=== PATIENT | male | born 1985 | race Two or more races ===

== ENCOUNTER 2021-12-20 00:23 | Day surgery (SDC) | payer OTHER, SELFPAY ==
[2021-12-18 17:23] VITALS: BMI 32.1
--- NOTE | 2021-12-18 17:46 | PC.NURSE ---
Report to the Outpatient Waiting Room, entrance under the green pavilion located off [facility], at 1200 on 12-20-21. OR Time: 1400. Time changes happen often and if your time is changed the preop area will call you the afternoon before. - You and your visitor will be asked to self-screen and do not enter if you have any COVID symptoms. - Only one visitor and NO children visitors are allowed at this time. - The patient visitor is requested to leave or wait in car when not with patient due to restrictions. - A mask is required within the hospital. Patients may have clear liquids (water, carbonated beverages, clear teas, apple juice) until 3 hours prior to surgery with a maximum of 20 ounces. 1100 - No food from midnight until time of surgery - Infants may have breast milk until 4 hours before surgery, formula 6 hours prior to surgery. - Children will be allowed to drink immediately following surgery. If applicable, please bring a bottle or sippy cup to assist with drinking. Juice, water, soda, and popsicles are readily available. For infants on formula, please bring formula the day of surgery. Pacifiers are allowed. Take the following medications with a SIP of water the morning of surgery: None Medications to discontinue per physician: Vitamins and supplements Date to take last dose: 12-18-21 Please no make-up, nail bulgarian, hairspray, perfume, deodorant, or body powder the day of surgery. No jewelry (including any body piercings) or valuables the day of surgery, leave them at home. Please take a shower or bath the night before, or the morning of, surgery with an antibacterial soap. Wear comfortable, loose fitting clothing. Children are encouraged to wear pajamas. - Jewelry must be removed prior to entering the operating room. Rings and piercings that are not removed may be cut off. - The hospital will not accept responsibility for valuables. - Please leave all valuables, including medications, at home the day of surgery. If you are going home after surgery, a licensed pizza driver must drive you home. - NO public transportation without another adult. - We recommend that an adult stay with you for 24 hours following discharge. - We also recommend that you do not drive, make important decision, drink alcoholic beverages, or take any drugs that were not prescribed by your health care provider for at least 24 hours after your discharge time. For Pediatric surgeries, we recommend two adults accompany the child home (only one inside the building at this time). Follow any additional instructions given to you from your surgeon. If you or anyone in your household have experienced Covid symptoms in the past week, please notify your surgeon or the nurse liaison at the phone number below for possible testing. Telephone instructions given to Mitch Vallecillo and asked if any additional questions and then verbalized understanding. Patient advised to call surgeon office or pre surgery nurse liaison [phone] if any additional questions.
[2021-12-20] MEDS: ACETAMINOPHEN 500 MG TABLET 1000 MG PO (13:20)
[2021-12-20] MEDS: LACTATED RINGERS 1,000 ML 30 ML IV CONT (13:25)
[2021-12-20 13:35] VITALS: BP 144/84; PULSE 88; RESP 16; TEMP 36.6; O2SAT 100
--- NOTE | 2021-12-20 13:44 | WPDANESEPPF ---
Anes - Initial Pre Proc Eval Procedure: Operation Date: 12/20/21 14:00 Proposed Procedures p Bilateral Vasectomy - Lawrence Toth MD Date/Time: 12/20/21 13:44 Surgeon: Lawrence Toth MD Pre Op Diagnosis: desires sterilization Patient Data Age: 36 Gender: M Height: 1.88 m Weight: 118.8 kg Last Vital Signs Temp 36.6 C 12/20/21 13:35 Pulse 88 12/20/21 13:35 Resp 16 12/20/21 13:35 BP 144/84 H 12/20/21 13:35 Pulse Ox 100 12/20/21 13:35 O2 Del Method Room Air 12/20/21 13:35 Allergies Allergy/AdvReac Type Severity Reaction Status Date / Time No Known Allergies Allergy Verified 12/20/21 13:10 Home Medications Medication Instructions Recorded Confirmed Type No Home Medications 12/18/21 12/18/21 History Patient hx anesthesia problems: none Family hx anesthesia problems: none Results Review: All pre-operative results and documents have been reviewed as part of the pre-operative evaluation. [facility] Past Medical History Medical History (Updated 12/20/21 @ 13:44 by Heri Lake MD) Obesity Surgical History Surgical History (Updated 12/20/21 @ 13:45 by Heri Lake MD) H/O wisdom tooth extraction History of shoulder surgery Social History Social History Smoking status: Never smoker Second hand tobacco smoke exposure: No Alcohol intake: current Alcohol use details: very rarely Substance use: never Substance use type: does not use Living arrangements: with family Spiritual care concerns: No Anes - Eval Final PreProcedure Day of Procedure 12/20/21 13:44 Patient weight: obese Heart: regular rate and rhythm Lungs: clear to auscultation Airway: Mallampati scale class II Neurological: alert and oriented Last oral intake: >/= 8 hours ASA classification: II Emergent: no Anesthetic plan: proceed Anesthesia type and monitoring: general GIVS and standard monitoring Results Review: All pre-operative results and documents have been reviewed as part of the pre-operative evaluation. Informed Consent: The patient's anesthetic plan and its attendant risks and benefits were discussed with the patient/family/POA. Questions were solicited and answers provided to the satisfaction of the patient/family/POA.
--- NOTE | 2021-12-20 14:19 | WPDHPUPDATE1 ---
History and Physical Update Update Date/Time: 12/20/21 14:19 History and Physical has been reviewed, including an updated exam of the patient. There are NO changes in the patient's condition. Risks, benefits, and alternatives have been discussed and questions answered. Patient agrees to proceed with procedure.
[2021-12-20] MEDS: ceFAZolin 2 GM/D5W 50 ML 2 GM/50 ML BAG IVPB (14:39)
--- NOTE | 2021-12-20 15:16 | W.PM.PROC2 ---
Procedure Note - Detailed Date of Procedure 12/20/21 Pre-op Diagnosis desires sterilization Post-op Diagnosis Same Procedure Performed Bilateral vasectomy Surgeon Lawrence Toth MD Description of Procedure Informed consent was obtained. Patient taken up room. He was given preoperative IV antibiotics. He was prepped and draped in normal sterile fashion. The vas deferens are palpable bilaterally. The right vas was pulled to the midline using a no scalpel technique the skin was opened and vas delivered. We then the vas deferens from surrounding structures. A 2cm portion vas was excised sent as specimen. We cauterized the ends a 3-0 chromic suture was placed on each end and a fascial interposition was performed. There was good hemostasis. We then performed identical procedure on the contralateral side. At this point there was no bleeding from the skin puncture site and therefore no suture was placed on the skin. Neosporin and a bandage were placed patient was awakened taken recovery room stable condition. Complications No immediate complications Condition Stable Disposition PACU
[2021-12-20 15:26] VITALS: BP 120/85; PULSE 96; RESP 14; O2SAT 97
[2021-12-20 15:56] VITALS: BP 132/83; PULSE 87; RESP 16
[2021-12-20 16:20] VITALS: BP 124/88; PULSE 83; RESP 16
== END 2021-12-20 16:23 | disposition home or self-care (01) ==
PROVIDERS: Visit Provider Urology
PROC: (CPT 55250; principal; 2021-12-20 14:00)
DX: Z30.2 Encounter for sterilization (principal); E66.9 Obesity, unspecified; Z68.33 Body mass index [BMI] 33.0-33.9, adult
CPT/HCPCS: 55250; 88300; A9270; J0690; J1100; J1885; J2250; J2704; J3010; J7120